=== PATIENT | female | born 2000 | race Caucasian/White ===

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

== ENCOUNTER 2022-01-03 18:02 | Emergency (ER) | payer MEDICAID ==
[~2022-01-03] VITALS: Ht 162.6 cm; Wt 72.1 kg
[~2022-01-03 18:02] MED LIST changes: +NAPR-54 PO; +VALA500T1 PO
[2022-01-03 18:14] VITALS: BP 130/82
--- NOTE | 2022-01-03 19:08 | NUR ---
Dr. Barnes examining patient.
[2022-01-03] MEDS ORDERED: ALUMINUM HYD/MAG/SIMETHICONE 30 ML UDC PO ONE (19:10)
[2022-01-03] MEDS ORDERED: ONDANSETRON 4 MG ODT PO ONE (19:10)
[2022-01-03 19:31] LABS: BASOPHILS % (AUTO) 0.5 % (0.0-2.0); EOSINOPHILS # (AUTO) 0.1 K/uL (0-0.4); EOSINOPHILS % (AUTO) 2.1 % (0.0-4.0); HEMATOCRIT 39.7 % (36-48); HEMOGLOBIN 13.3 g/dL (12.0-16.0); LYMPHOCYTES # (AUTO) 1.8 K/uL (2.5-16.5); LYMPHOCYTES % (AUTO) 26.2 % (20.5-51.1); MEAN CORPUSCULAR HEMOGLOBIN 28 pg (27-31); MEAN CORPUSCULAR HGB CONC 34 g/dL (33-37); MEAN CORPUSCULAR VOLUME 83.7 fL (80-94); MONOCYTES # (AUTO) 0.7 K/uL (0.8-1.0); MONOCYTES % (AUTO) 9.9 % (1.7-9.3); NEUTROPHILS # (AUTO) 4.2 K/uL (1.8-7.7); NEUTROPHILS % (AUTO) 61.3 % (42.2-75.2); PLATELET COUNT (AUTO) 268 K/uL (140-450); RED BLOOD CELL COUNT(AUTO) 4.74 MIL/uL (4.20-5.40); WHITE BLOOD COUNT (AUTO) 6.8 K/uL (4.5-11.0)
[2022-01-03 19:58] LABS: ALBUMIN 3.8 g/dL (3.4-5.0); ANION GAP 13.1 (8-16); CARBON DIOXIDE 26.1 mmol/L (21-32); CREATININE 0.7 mg/dL (0.6-1.3); POTASSIUM 4.2 mmol/L (3.5-5.1); TOTAL BILIRUBIN 0.2 mg/dL (0.0-1.0)
--- NOTE | 2022-01-03 20:42 | NUR ---
Patient left without D/C papers.
== END 2022-01-03 20:42 | disposition home or self-care (01) ==
LOC: MED 18:02
DX: O26.891 Other specified pregnancy related conditions, first trimester (principal); O21.8 Other vomiting complicating pregnancy; R10.30 Lower abdominal pain, unspecified; Z79.899 Other long term (current) drug therapy
CPT/HCPCS: 36415; 80053; 81002; 81025; 83690; 85025; 99283; Q0162

== ENCOUNTER 2022-02-18 19:49 | Emergency (ER) | payer MEDICAID ==
--- NOTE | 2022-02-18 21:48 | NUR ---
PT CALLED 3 TIMES FOR TRIAGE WITH NO ANSWER.
--- NOTE | 2022-02-18 21:48 | NUR ---
PATIENT LEFT WITHOUT BEING SEEN BY DR. CABRAL. NO FURTHER CARE PROVIDED FOR PATIENT.
== END 2022-02-18 21:48 | disposition left against medical advice (07) ==
LOC: MED 19:49
DX: J02.9 Acute pharyngitis, unspecified (principal); Z53.21 Procedure and treatment not carried out due to patient leaving prior to being seen by health care provider

== ENCOUNTER 2023-01-17 05:35 | Emergency (ER) | payer MEDICAID, OTHER ==
[~2023-01-17] VITALS: Ht 162.6 cm; Wt 73.5 kg
[~2023-01-17 05:35] MED LIST changes: -ACET-8386 PO; +ACET-8905 PO
[2023-01-17 05:55] VITALS: BP 106/62; PULSE 88; RESP 17; TEMP 98; O2SAT 97
[2023-01-17] MEDS ORDERED: OFLO5DRO2 LEFT EYE (07:20)
[2023-01-17 07:45] VITALS: BP 106/62; PULSE 88; RESP 17; TEMP 98; O2SAT 97
== END 2023-01-17 07:45 | disposition home or self-care (01) ==
LOC: MED 05:35
DX: H10.9 Unspecified conjunctivitis (principal); Z79.899 Other long term (current) drug therapy; Z79.1 Long term (current) use of non-steroidal anti-inflammatories (NSAID); Z79.2 Long term (current) use of antibiotics
CPT/HCPCS: 99283

== ENCOUNTER 2023-07-21 05:35 | Emergency (ER) | payer OTHER ==
[~2023-07-21] VITALS: Ht 165.1 cm; Wt 72.7 kg
[~2023-07-21 05:35] MED LIST changes: +OFLO5DRO2 LEFT EYE
[2023-07-21 06:04] VITALS: BP 119/65; PULSE 95; RESP 18; TEMP 97.7; O2SAT 99
[2023-07-21] MEDS ORDERED: PHEN-1877 PO (06:27)
[2023-07-21] MEDS ORDERED: NAPR-1704 PO (06:27)
[2023-07-21] MEDS ORDERED: NITR100C7 PO (06:27)
[2023-07-21 06:33] VITALS: BP 119/65; PULSE 95; RESP 18; TEMP 97.7; O2SAT 99
[2023-07-21 07:04] LABS: BILIRUBIN,URINE NEGATIVE (NEGATIVE); BLOOD, URINE 3+ (NEGATIVE); COLOR,URINE YELLOW (YELLOW); NITRITE, URINE POSITIVE (NEGATIVE); PROTEIN,URINE 2+ (NEGATIVE); UGLUCOSE NEGATIVE (NEGATIVE); UROBILINOGEN,URINE 0.2 EU/dL (0.2 - 1)
[2023-07-21 07:05] LABS: APPEARANCE,URINE HAZY (CLEAR)
[2023-07-21 07:17] LABS: BACTERIA,URINE 1+ /HPF (None Seen)
[2023-07-21 07:19] LABS: LEUKOCYTE ESTERASE ,URINE 2+ (NEGATIVE); WBC,URINE TOO MANY TO COUNT /HPF (0-5)
[2023-07-21 07:20] LABS: SQUAMOUS EPITHELIAL CELL,UR 0-3 (FEW) /LPF (0-3 (FEW))
[2023-07-21 07:21] LABS: RBC,URINE 50-80 /HPF (0-5)
== END 2023-07-21 06:33 | disposition home or self-care (01) ==
LOC: MED 05:35
DX: N39.0 Urinary tract infection, site not specified (principal); Z79.1 Long term (current) use of non-steroidal anti-inflammatories (NSAID); Z79.899 Other long term (current) drug therapy
CPT/HCPCS: 81001; 81025; 87086; 87186; 99283

== ENCOUNTER 2023-08-01 09:34 | Emergency (ER) | payer OTHER ==
[~2023-08-01] VITALS: Ht 162.6 cm; Wt 70.8 kg
[~2023-08-01 09:34] MED LIST changes: +NAPR-1704 PO; +NITR100C7 PO; +PHEN-1877 PO
[2023-08-01 10:05] VITALS: BP 92/56; PULSE 97; RESP 16; TEMP 97; O2SAT 100
[2023-08-01] MEDS ORDERED: CETI10SG1 PO (10:29)
[2023-08-01] MEDS ORDERED: ERYT5OIN58 RIGHT EYE (10:29)
[2023-08-01 10:53] VITALS: BP 134/70; PULSE 88; RESP 18; TEMP 98.1; O2SAT 99
== END 2023-08-01 10:48 | disposition home or self-care (01) ==
LOC: MED 09:34
DX: H10.89 Other conjunctivitis (principal); B96.89 Other specified bacterial agents as the cause of diseases classified elsewhere; J30.9 Allergic rhinitis, unspecified; R09.81 Nasal congestion; Z79.899 Other long term (current) drug therapy
CPT/HCPCS: 99283